=== PATIENT | female | born 1970 | race Caucasian/White ===

== ENCOUNTER 2017-05-31 00:44 | Emergency (ER) | payer SELFPAY ==
[2017-05-31 01:09] LABS: Basophils % (Auto) 1.2 % (0.0-1.8); Eosinophils % (Auto) 2.1 % (0.0-4.3); Hematocrit 41.4 % (30.3-42.9); Hemoglobin 13.9 gm/dl (10.1-14.3); Mean Corpuscular HGB Conc 34 % (30-34); Mean Corpuscular Hemoglobin 30 pg (28-32); Mean Corpuscular Volume 89 fl (79-97); Platelet Count 234 K/mm3 (140-440); Red Blood Count 4.68 M/mm3 (3.65-5.03); Red Cell Distribution Width 14.9 % (13.2-15.2); White Blood Count 12.4 K/mm3 (4.5-11.0)
[2017-05-31 01:29] LABS: Alanine Aminotransferase 10 units/L (7-56); Albumin/Globulin Ratio 1.3 %; Alkaline Phosphatase 74 units/L (35-129); Anion Gap 17 mmol/L; BUN/Creatinine Ratio 25.71; Blood Urea Nitrogen 18 mg/dL (7-17); Calcium 8.9 mg/dL (8.4-10.2); Carbon Dioxide 22 mmol/L (22-30); Chloride 103.3 mmol/L (98-107); Glucose 110 mg/dL (65-100); Lipase 41 units/L (13-60); Potassium 3.8 mmol/L (3.6-5.0); Sodium 138 mmol/L (137-145)
[2017-05-31 02:51] LABS: Bilirubin,Urine NEG (Negative); Blood,Urine LG (Negative); Ketones,Urine NEG (Negative); Leukocyte Esterase,Urine TR (Negative); Mucus,Urine FEW /HPF; Nitrite,Urine NEG (Negative); Urobilinogen,Urine < 2.0 mg/dL (<2.0)
--- NOTE | 2017-05-31 07:02 | Emergency Department Report ---
ED Abdominal Pain HPI - General Chief Complaint: Abdominal Pain Stated Complaint: ABD PAIN Time Seen by Provider: 05/31/17 06:59 Source: patient Mode of arrival: Ambulatory Limitations: No Limitations - History of Present Illness Severity scale (0 -10): 6 - Related Data Previous Rx's Medication Instructions Recorded Last Taken Type Albuterol Sulfate [Ventolin HFA] 2 puff IH Q4H PRN #1 hfa.aer.ad 03/30/14 Unknown Rx Ciprofloxacin HCl [Cipro] 500 mg PO Q12H #20 tab 01/06/15 01/19/15 20:00 Rx Ibuprofen [Motrin] 600 mg PO Q8H PRN #60 tablet 01/06/15 01/20/15 05:00 Rx Oxycodone HCl/Acetaminophen 1 each PO Q6HR PRN #20 tablet 01/06/15 01/18/15 10: 00 Rx [Percocet 10-325 mg] Oxycodone HCl/Acetaminophen 1 each PO Q4H PRN #20 tablet 01/20/15 Unknown Rx [Percocet 10-325 mg] Sulfamethoxazole/Trimethoprim 1 each PO BID #14 tablet 09/28/15 Unknown Rx [Bactrim DS TAB] metroNIDAZOLE [Flagyl] 500 mg PO Q12HR #20 tab 09/28/15 Unknown Rx Allergies Allergy/AdvReac Type Severity Reaction Status Date / Time No Known Allergies Allergy Verified 01/20/15 08:26 ED Review of Systems ROS: Stated complaint: ABD PAIN Other details as noted in HPI ED Past Medical Hx - Past Medical History Previous Medical History?: Yes Hx Kidney Stones: Yes Hx Asthma: Yes - Surgical History Past Surgical History?: Yes Additional Surgical History: . tubal ligation - Social History Smoking Status: Current Every Day Smoker Substance Use Type: None - Medications Home Medications: Home Medications Medication Instructions Recorded Confirmed Last Taken Type Albuterol Sulfate [Ventolin HFA] 2 puff IH Q4H PRN #1 hfa.aer.ad 03/30/14 Unknown Rx Ciprofloxacin HCl [Cipro] 500 mg PO Q12H #20 tab 01/06/15 01/20/15 01/19/15 20: 00 Rx Ibuprofen [Motrin] 600 mg PO Q8H PRN #60 tablet 01/06/15 01/20/15 01/20/15 05: 00 Rx Oxycodone HCl/Acetaminophen 1 each PO Q6HR PRN #20 tablet 01/06/15 01/20/1501/03 10:00 Rx [Percocet 10-325 mg] Oxycodone HCl/Acetaminophen 1 each PO Q4H PRN #20 tablet 01/20/15 Unknown Rx [Percocet 10-325 mg] Sulfamethoxazole/Trimethoprim 1 each PO BID #14 tablet 09/28/15 Unknown Rx [Bactrim DS TAB] metroNIDAZOLE [Flagyl] 500 mg PO Q12HR #20 tab 09/28/15 Unknown Rx ED Physical Exam - General Limitations: No Limitations ED Course Vital Signs 05/31/17 05/31/17 05/31/17 00:51 05:45 06:39 Temperature 98.5 F Pulse Rate 86 74 Respiratory 20 12 16 Rate Blood Pressure 95/55 113/63 O2 Sat by Pulse 96 96 Oximetry ED Medical Decision Making - Lab Data Result diagrams: 05/31/17 01:01 05/31/17 01:01 Laboratory Results - last 24 hr 05/31/17 05/31/17 05/31/17 01:01 01:01 01:01 WBC 12.4 H RBC 4.68 Hgb 13.9 Hct 41.4 MCV 89 MCH 30 MCHC 34 RDW 14.9 Plt Count 234 Lymph % (Auto) 20.3 Summers % (Auto) 5.7 Eos % (Auto) 2.1 Baso % (Auto) 1.2 Lymph # 2.5 Summers # 0.7 Eos # 0.3 Baso # 0.1 Seg Neutrophils % 70.7 H Seg Neutrophils # 8.8 H Sodium 138 Potassium 3.8 Chloride 103.3 Carbon Dioxide 22 Anion Gap 17 BUN 18 H Creatinine 0.7 Estimated GFR > 60 BUN/Creatinine Ratio 25.71 Glucose 110 H Calcium 8.9 Total Bilirubin 0.20 AST 14 ALT 10 Alkaline Phosphatase 74 Total Protein 7.0 Albumin 4.0 Albumin/Globulin Ratio 1.3 Lipase 41 HCG, Qual Negative Urine Color Urine Turbidity Urine pH Ur Specific [place] Urine Protein Urine Glucose (UA) Urine Ketones Urine Blood Urine Nitrite Urine Bilirubin Urine Urobilinogen Ur Leukocyte Esterase Urine WBC (Auto) Urine RBC (Auto) U Epithel Cells (Auto) Urine Mucus 05/31/17 01:58 WBC RBC Hgb Hct MCV MCH MCHC RDW Plt Count Lymph % (Auto) Summers % (Auto) Eos % (Auto) Baso % (Auto) Lymph # Summers # Eos # Baso # Seg Neutrophils % Seg Neutrophils # Sodium Potassium Chloride Carbon Dioxide Anion Gap BUN Creatinine Estimated GFR BUN/Creatinine Ratio Glucose Calcium Total Bilirubin AST ALT Alkaline Phosphatase Total Protein Albumin Albumin/Globulin Ratio Lipase HCG, Qual Urine Color Yellow Urine Turbidity Clear Urine pH 6.0 Ur Specific [place] 1.024 Urine Protein 30 mg/dl Urine Glucose (UA) Neg Urine Ketones Neg Urine Blood Lg Urine Nitrite Neg Urine Bilirubin Neg Urine Urobilinogen < 2.0 Ur Leukocyte Esterase Tr Urine WBC (Auto) 10.0 H Urine RBC (Auto) 87.0 U Epithel Cells (Auto) 1.0 Urine Mucus Few Critical care attestation.: If time is entered above; I have spent that time in minutes in the direct care of this critically ill patient, excluding procedure time. ED Disposition Condition: Stable Instructions: Abdominal Pain (ED) Referrals: PRIMARY CARE, [Primary Care Provider] - 3-5 Days
[2017-05-31] MEDS ORDERED: TORADOL IV ONE (07:03)
--- NOTE | 2017-05-31 07:28 | Emergency Department Report ---
ED Chest Pain HPI - General Chief Complaint: Chest Pain Stated Complaint: chest pain Time Seen by Provider: 05/31/17 06:59 Source: patient Mode of arrival: Ambulatory Limitations: No Limitations - History of Present Illness Initial Comments: The patient reports a variety of symptoms. Apparently she had an episode last night that resulted in 911. Severity scale (0 -10): 2 - Related Data Previous Rx's Medication Instructions Recorded Last Taken Type Albuterol Sulfate [Ventolin HFA] 2 puff IH Q4H PRN #1 hfa.aer.ad 03/30/14 Unknown Rx Ciprofloxacin HCl [Cipro] 500 mg PO Q12H #20 tab 01/06/15 01/19/15 20:00 Rx Ibuprofen [Motrin] 600 mg PO Q8H PRN #60 tablet 01/06/15 01/20/15 05:00 Rx Oxycodone HCl/Acetaminophen 1 each PO Q6HR PRN #20 tablet 01/06/15 01/18/15 10: 00 Rx [Percocet 10-325 mg] Oxycodone HCl/Acetaminophen 1 each PO Q4H PRN #20 tablet 01/20/15 Unknown Rx [Percocet 10-325 mg] Sulfamethoxazole/Trimethoprim 1 each PO BID #14 tablet 09/28/15 Unknown Rx [Bactrim DS TAB] metroNIDAZOLE [Flagyl] 500 mg PO Q12HR #20 tab 09/28/15 Unknown Rx Allergies Allergy/AdvReac Type Severity Reaction Status Date / Time No Known Allergies Allergy Verified 01/20/15 08:26 ED Review of Systems ROS: Stated complaint: ABD PAIN Other details as noted in HPI ED Past Medical Hx - Past Medical History Previous Medical History?: Yes Hx Kidney Stones: Yes Hx Asthma: Yes - Surgical History Past Surgical History?: Yes Additional Surgical History: . tubal ligation - Social History Smoking Status: Current Every Day Smoker Substance Use Type: None - Medications Home Medications: Home Medications Medication Instructions Recorded Confirmed Last Taken Type Albuterol Sulfate [Ventolin HFA] 2 puff IH Q4H PRN #1 hfa.aer.ad 03/30/14 Unknown Rx Ciprofloxacin HCl [Cipro] 500 mg PO Q12H #20 tab 01/06/15 01/20/15 01/19/15 20: 00 Rx Ibuprofen [Motrin] 600 mg PO Q8H PRN #60 tablet 01/06/15 01/20/15 01/20/15 05: 00 Rx Oxycodone HCl/Acetaminophen 1 each PO Q6HR PRN #20 tablet 01/06/15 01/20/1501/03 10:00 Rx [Percocet 10-325 mg] Oxycodone HCl/Acetaminophen 1 each PO Q4H PRN #20 tablet 01/20/15 Unknown Rx [Percocet 10-325 mg] Sulfamethoxazole/Trimethoprim 1 each PO BID #14 tablet 09/28/15 Unknown Rx [Bactrim DS TAB] metroNIDAZOLE [Flagyl] 500 mg PO Q12HR #20 tab 09/28/15 Unknown Rx ED Physical Exam - General Limitations: No Limitations ED Course Vital Signs 05/31/17 05/31/17 05/31/17 00:51 05:45 06:39 Temperature 98.5 F Pulse Rate 86 74 Respiratory 20 12 16 Rate Blood Pressure 95/55 113/63 O2 Sat by Pulse 96 96 Oximetry ED Medical Decision Making - Lab Data Result diagrams: 05/31/17 01:01 05/31/17 01:01 Critical care attestation.: If time is entered above; I have spent that time in minutes in the direct care of this critically ill patient, excluding procedure time. ED Disposition Condition: Stable Instructions: Abdominal Pain (ED) Referrals: PRIMARY CARE, [Primary Care Provider] - 3-5 Days
--- NOTE | 2017-05-31 07:41 | Emergency Department Report ---
ED Abdominal Pain HPI - General Chief Complaint: Abdominal Pain Stated Complaint: ABD PAIN Time Seen by Provider: 05/31/17 06:59 Source: patient Mode of arrival: Ambulatory Limitations: No Limitations - History of Present Illness Initial Comments: Patient complains of right lower quadrant pain that somewhat radiates to her back and groin. She's had a previous kidney stone. Lithotripsy was recommended for nephrolithiasis as well. She had hydronephrosis with a ureteral stone on the right. She did follow up with urologist. She states she lost her insurance and never had lithotripsy. She is uncertain if the current pain is due to a kidney stone. She denies dysuria. She denies fever chills nausea vomiting or diarrhea. MD Complaint: abdominal pain -: Gradual, days(s) Location: RLQ Radiation: back Migration to: no migration Severity scale (0 -10): 2 Quality: aching Consistency: intermittent Improves With: nothing Worsens With: nothing Context: other (history of kidney stone) Associated Symptoms: denies other symptoms Treatments Prior to Arrival: other - Related Data Previous Rx's Medication Instructions Recorded Last Taken Type Albuterol Sulfate [Ventolin HFA] 2 puff IH Q4H PRN #1 hfa.aer.ad 03/30/14 Unknown Rx Ciprofloxacin HCl [Cipro] 500 mg PO Q12H #20 tab 01/06/15 01/19/15 20:00 Rx Ibuprofen [Motrin] 600 mg PO Q8H PRN #60 tablet 01/06/15 01/20/15 05:00 Rx Oxycodone HCl/Acetaminophen 1 each PO Q6HR PRN #20 tablet 01/06/15 01/18/15 10: 00 Rx [Percocet 10-325 mg] Oxycodone HCl/Acetaminophen 1 each PO Q4H PRN #20 tablet 01/20/15 Unknown Rx [Percocet 10-325 mg] Sulfamethoxazole/Trimethoprim 1 each PO BID #14 tablet 09/28/15 Unknown Rx [Bactrim DS TAB] metroNIDAZOLE [Flagyl] 500 mg PO Q12HR #20 tab 09/28/15 Unknown Rx Sulfamethoxazole/Trimethoprim 1 each PO BID #14 tablet 05/31/17 Unknown Rx [Bactrim DS TAB] traMADol [Ultram] 50 mg PO Q6HR PRN #7 tablet 05/31/17 Unknown Rx Allergies Allergy/AdvReac Type Severity Reaction Status Date / Time No Known Allergies Allergy Verified 01/20/15 08:26 ED Review of Systems ROS: Stated complaint: ABD PAIN Other details as noted in HPI Constitutional: denies: chills, fever Eyes: denies: eye pain, eye discharge, vision change ENT: denies: ear pain, throat pain Respiratory: denies: cough, shortness of breath, wheezing Cardiovascular: denies: chest pain, palpitations Endocrine: no symptoms reported Gastrointestinal: abdominal pain. denies: nausea, diarrhea Genitourinary: denies: urgency, dysuria, discharge Musculoskeletal: denies: back pain, joint swelling, arthralgia Skin: denies: rash, lesions Neurological: denies: headache, weakness, paresthesias Psychiatric: denies: anxiety, depression Hematological/Lymphatic: denies: easy bleeding, easy bruising ED Past Medical Hx - Past Medical History Previous Medical History?: Yes Hx Kidney Stones: Yes Hx Asthma: Yes - Surgical History Past Surgical History?: Yes Additional Surgical History: . tubal ligation - Social History Smoking Status: Current Every Day Smoker Substance Use Type: None - Medications Home Medications: Home Medications Medication Instructions Recorded Confirmed Last Taken Type Albuterol Sulfate [Ventolin HFA] 2 puff IH Q4H PRN #1 hfa.aer.ad 03/30/14 Unknown Rx Ciprofloxacin HCl [Cipro] 500 mg PO Q12H #20 tab 01/06/15 01/20/15 01/19/15 20: 00 Rx Ibuprofen [Motrin] 600 mg PO Q8H PRN #60 tablet 01/06/15 01/20/15 01/20/15 05: 00 Rx Oxycodone HCl/Acetaminophen 1 each PO Q6HR PRN #20 tablet 01/06/15 01/20/1501/03 10:00 Rx [Percocet 10-325 mg] Oxycodone HCl/Acetaminophen 1 each PO Q4H PRN #20 tablet 01/20/15 Unknown Rx [Percocet 10-325 mg] Sulfamethoxazole/Trimethoprim 1 each PO BID #14 tablet 09/28/15 Unknown Rx [Bactrim DS TAB] metroNIDAZOLE [Flagyl] 500 mg PO Q12HR #20 tab 09/28/15 Unknown Rx Sulfamethoxazole/Trimethoprim 1 each PO BID #14 tablet 05/31/17 Unknown Rx [Bactrim DS TAB] traMADol [Ultram] 50 mg PO Q6HR PRN #7 tablet 05/31/17 Unknown Rx ED Physical Exam - General Limitations: No Limitations General appearance: alert, in no apparent distress - Head Head exam: Present: atraumatic, normocephalic - Eye Eye exam: Present: normal appearance. Absent: scleral icterus - ENT ENT exam: Present: normal exam, mucous membranes moist - Neck Neck exam: Present: normal inspection - Respiratory Respiratory exam: Present: normal lung sounds bilaterally. Absent: respiratory distress - Cardiovascular Cardiovascular Exam: Present: regular rate, normal rhythm. Absent: systolic murmur, diastolic murmur, rubs, gallop - GI/Abdominal GI/Abdominal exam: Present: soft, normal bowel sounds. Absent: distended, tenderness, guarding, rebound, rigid - Extremities Exam Extremities exam: Present: normal inspection - Back Exam Back exam: Present: normal inspection - Neurological Exam Neurological exam: Present: alert, oriented X3, CN II-XII intact. Absent: motor sensory deficit - Psychiatric Psychiatric exam: Present: normal affect, normal mood - Skin Skin exam: Present: warm, dry, intact, normal color. Absent: rash ED Course Vital Signs 05/31/17 05/31/17 05/31/17 00:51 05:45 06:39 Temperature 98.5 F Pulse Rate 86 74 Respiratory 20 12 16 Rate Blood Pressure 95/55 113/63 Blood Pressure [Left] O2 Sat by Pulse 96 96 Oximetry 05/31/17 05/31/17 05/31/17 07:46 08:26 08:27 Temperature 98 F Pulse Rate 69 Respiratory 18 18 18 Rate Blood Pressure Blood Pressure 117/48 [Left] O2 Sat by Pulse 96 96 Oximetry - Reevaluation(s) Reevaluation #1: Patient resting comfortably. Does not complain of abdominal pain. Repeat abdominal exam is completely benign. 05/31/17 10:23 ED Medical Decision Making - Lab Data Result diagrams: 05/31/17 01:01 05/31/17 01:01 Critical care attestation.: If time is entered above; I have spent that time in minutes in the direct care of this critically ill patient, excluding procedure time. ED Disposition Clinical Impression: Abdominal pain Qualifiers: Abdominal location: right lower quadrant Qualified Code(s): R10.31 - Right lower quadrant pain UTI (urinary tract infection) Qualifiers: Urinary tract infection type: site unspecified Hematuria presence: with hematuria Qualified Code(s): N39.0 - Urinary tract infection, site not specified ; R31.9 - Hematuria, unspecified Disposition: TO HOME OR SELFCARE Is pt being admited?: No Does the pt Need Aspirin: No Condition: Stable Instructions: Abdominal Pain (ED), Urinary Tract Infection in Women (ED) Additional Instructions: Return any acute recurrent significant abdominal pain nausea vomiting or fever. Rx as directed. Follow-up with referral clinic or physician. Prescriptions: Sulfamethoxazole/Trimethoprim [Bactrim DS TAB] 1 each PO BID #14 tablet traMADol [Ultram] 50 mg PO Q6HR PRN #7 tablet PRN Reason: Pain Referrals: PRIMARY CARE, [Primary Care Provider] - 3-5 Days Time of Disposition: 10:26
--- NOTE | 2017-05-31 08:14 | Ultrasound Report ---
ULTRASOUND ABDOMEN COMPLETE: Technique: Transabdominal ultrasound with color Doppler interrogation. History: abdominal pain. Findings: The liver is normal size, contour and echotexture. The gallbladder dimensions are within normal limits without intraluminal stone, wall thickening, or pericholecystic fluid. The CBD is borderline dilated measuring 6 mm. No obstructing lesion is appreciated in the CBD The visualized portions of the pancreas including the head and proximal body are within normal limits. The right kidney measures 10.3 cm. The left kidney measures 11.2 cm. There is suggestion of mild cortical thinning and increased echo texture in the right kidney. No focal renal lesion or hydronephrosis. The left kidney is normal. The spleen and aorta are within normal limits. No aneurysmal dilatation is noted. No ascites. The bladder is unremarkable. IMPRESSION: Borderline dilatation of the common bile duct but no obstructing lesion is appreciated. No evidence for cholelithiasis. Please correlate with the patient's clinical presentation. Mild cortical thinning in the right kidney. No acute abdominal process appreciated.
[2017-05-31 08:27] VITALS: BP 117/48
== END 2017-05-31 11:12 | disposition home or self-care (01) ==
LOC: ED 00:44
DX: N39.0 Urinary tract infection, site not specified (principal); R31.9 Hematuria, unspecified; R10.31 Right lower quadrant pain; F17.200 Nicotine dependence, unspecified, uncomplicated; J45.909 Unspecified asthma, uncomplicated; N13.2 Hydronephrosis with renal and ureteral calculous obstruction
CPT/HCPCS: 36415; 76700; 80053; 81001; 83690; 84703; 85025; 87086; 96374; 99284; J1885